=== PATIENT | female | born 1960 | race Caucasian/White ===

== ENCOUNTER → 2018-02-14 | Outpatient (CLI) | payer BC ==
[~2018-02-14] MED LIST: AVAPRO TAB150 MG/TAB PO; BUDEPRION XL300 MG PO; BUPROPION HCL150 MG PO; COZAAR 25MG25 MG/TAB PO; HCTZ 25MG25 MG PO; NEXIUM40 MG PO
== END ==
LOC: MC.RAD 13:09
DX: Z12.31 Encounter for screening mammogram for malignant neoplasm of breast (principal)

== ENCOUNTER → 2019-08-28 | Outpatient (CLI) | payer BC | LOC: MC.RAD 11:30 | DX: Z12.31 Encounter for screening mammogram for malignant neoplasm of breast (principal) ==

== ENCOUNTER → 2020-08-31 | Outpatient (CLI) | payer BC | LOC: MC.RAD 13:00 | DX: Z12.31 Encounter for screening mammogram for malignant neoplasm of breast (principal) ==

== ENCOUNTER → 2021-09-21 | Outpatient (CLI) | payer OTHER | LOC: MC.RAD 08:40 | DX: Z12.31 Encounter for screening mammogram for malignant neoplasm of breast (principal) ==

== ENCOUNTER 2022-01-12 06:24 | Day surgery (SDC) | payer OTHER ==
[~2022-01-12] VITALS: Ht 170.2 cm; Wt 82.3 kg
[2022-01-12 06:40] VITALS: BP 129/79; PULSE 61; TEMP 98
[2022-01-12 08:20] VITALS: BP 119/85; PULSE 74; TEMP 96.9
--- NOTE | 2022-01-12 08:20 | NUR ---
PT RETURNED TO [facility] VIA CART, ASSISTED TO CHAIR, GAIT SLIGHTLY UNSTABLE. NOW IN ROOM, HAS CALL LIGHT IN REACH, AWAKE AND TALKING TAKES TEA AND SNACK
[2022-01-12 08:35] VITALS: BP 119/80; PULSE 62
[2022-01-12 08:50] VITALS: BP 122/74; PULSE 62
--- NOTE | 2022-01-12 08:58 | NUR ---
CON'T SAME, NO C/O, SITS UP IN RECLINER TAKES TEA
[2022-01-12 09:10] VITALS: BP 120/66; PULSE 63
--- NOTE | 2022-01-12 09:10 | NUR ---
DR DUQUE SEE PT AND CONCERNING PROCEDURE, THEN REIVEWED DISCHARGE INST. WITH PT ON ACTIVITY, PRECAUTIONS AND FOLLOWUP, OFFICE WILL CALL ON PENDING PATHOLOGY REPORTS. IV D'CD INTACT, PT THEN UP AND DRESSED, DISCHARGED AT 0925 VIA W/C TO CAR WITH
== END 2022-01-12 09:30 | disposition home or self-care (01) ==
LOC: SDCO 06:24
DX: Z12.11 Encounter for screening for malignant neoplasm of colon (principal); D12.4 Benign neoplasm of descending colon; K57.30 Diverticulosis of large intestine without perforation or abscess without bleeding
CPT/HCPCS: J2704; J7120

== ENCOUNTER → 2022-10-17 | Outpatient (CLI) | payer OTHER | LOC: MC.RAD 08:15 | DX: Z12.31 Encounter for screening mammogram for malignant neoplasm of breast (principal) ==